=== PATIENT | female | born 1995 | race Caucasian/White ===

== ENCOUNTER 2017-08-14 09:30 | Inpatient (IN) | payer BC ==
[~2017-08-14 09:30] MED LIST: DEXTROSE 5%-LACTATED RINGERS 1,000 ML IV SCH
[2017-08-14] MEDS ORDERED: AMPICILLIN - 2 GM in SODIUM CHLORIDE 100 ML IVPB ONE (09:40)
[2017-08-14] MEDS ORDERED: BUTORPHANOL TARTRATE 1 MG/ML VIAL IVPB ONE (09:50)
[2017-08-14] MEDS ORDERED: BUTORPHANOL TARTRATE 1 MG/ML VIAL IVPB SCH (09:50)
[2017-08-14] MEDS ORDERED: PROMETHAZINE HCL 25 MG/1 ML VIAL IVPB ONE (09:50)
[2017-08-14] MEDS ORDERED: TUBERCULIN PPD 5 TU/0.1ML SYRINGE (IN PATIENT USE ONLY) ID ONE (10:14)
[2017-08-14 10:35] VITALS: BMI 27.9
[2017-08-14 11:12] LABS: BASOPHIL 0.4 % (0-2.0); EOSINOPHIL 0.1 % (0-4.5); MCHC 31.5 g/dl (32.0-36.0); MEAN CELL VOLUME 69.8 fl (80-96); MEAN PLT VOLUME 9.3 fl (7.5-11.1); NEUTROPHILS 89.7 % (42.8-82.8); PLATELET COUNT 204 K/MM3 (134-434); RDW 14.6 % (11.6-15.6); WHITE BLOOD COUNT 16.7 K/mm3 (4.0-10.0)
[2017-08-14 11:28] LABS: INR 0.94 (0.82-1.09); PROTHROMBIN TIME (PATIENT) 10.6 SEC (9.98-11.88)
[2017-08-14] MEDS ORDERED: ELECTROLYTE-148 SOLN 1,000 ML IV ONE (11:30)
[2017-08-14 11:31] LABS: ACTIVATED PTT 27.9 SECONDS (26.9-34.4)
[2017-08-14 13:08] LABS: HIV 1 & 2 AB NEGATIVE; HIV 1 AGp24 NEGATIVE
[2017-08-14] MEDS: AMPICILLIN - 1 GM in SODIUM CHLORIDE 100 ML IVPB SCH (13:40)
[2017-08-14] MEDS ORDERED: OXYTOCIN 15 UNITS/ LR 250 ML 250 ML IV ONE (14:45)
--- NOTE | 2017-08-14 14:48 | HP ---
Past Medical History - Admission Chief Complaint: Labor pain History of Present Illness: 22 yo @ 38.6 weeks gestation, EDC , admitted for labor pain. History Source: Patient Limitations to Obtaining History: No Limitations - Past Medical History ...: 1 ...Para: 0 ...Term: 0 ...: 0 ...Spon : 0 ...Induced : 0 ...Multiple Gestation: 0 ...LMP: 11/15/15 ... Weeks Gestation by Dates: 38.6 ...EDC by Dates: 08/22/17 - Past Surgical History Past Surgical History: Yes: None Hx Myomectomy: No Hx Transabdominal Cerclage: No - Smoking History Smoking history: Never smoked Have you smoked in the past 12 months: No - Alcohol/Substance Use Hx Alcohol Use: No History of Substance Use: reports: None - Social History Usual Living Arrangement: Yes: With Parent History of Recent Travel: No Home Medications - Allergies Allergies/Adverse Reactions: Allergies Allergy/AdvReac Type Severity Reaction Status Date / Time No Known Allergies Allergy Verified 08/14/17 10:52 - Home Medications Home Medications: Ambulatory Orders Vit #108/Iron/FA [ One Tablet] 1 tab PO DAILY 08/14/17 Family Disease History - Family Disease History Family History: Unremarkable Review of Systems - Review of Systems Constitutional: reports: No Symptoms Eyes: reports: No Symptoms HENT: reports: No Symptoms Neck: reports: No Symptoms Cardiovascular: reports: No Symptoms Respiratory: reports: No Symptoms Gastrointestinal: reports: No Symptoms Genitourinary: reports: Pain Breasts: reports: No Symptoms Reported Musculoskeletal: reports: No Symptoms Integumentary: reports: No Symptoms Neurological: reports: No Symptoms Endocrine: reports: No Symptoms Hematology/Lymphatic: reports: No Symptoms Psychiatric: reports: No Symptoms Pain Intensity: 8 Physical Exam - Maternity Vital Signs: Vital Signs Temperature 98.6 F 08/14/17 14:00 Pulse Rate 82 08/14/17 14:15 Respiratory Rate 20 08/14/17 14:15 Blood Pressure 126/65 08/14/17 14:15 O2 Sat by Pulse Oximetry (%) 100 08/14/17 12:30 Constitutional: Yes: Well Nourished Eyes: Yes: Conjunctiva Clear HENT: Yes: Atraumatic Neck: Yes: Supple Cardiovascular: Yes: Regular Rate and Rhythm Lungs: Clear to auscultation - Abdominal Exam/OB Number of Fetuses: Single Presentation: Vertex - Vaginal Exam/OB Station: -2 - Physical Exam Psychiatric: Yes: Alert, Oriented - Labs Lab Results: CBC, BMP 08/14/17 10:40 Problem List - Problems (1) Pain during labor Code(s): O99.89 - OTH DISEASES AND CONDITIONS COMPL PREG/CHLDBRTH R52 - PAIN, UNSPECIFIED Assessment/Plan Active labor Admit to L&D Analgesia as needed Anticipate
[2017-08-14] MEDS ORDERED: OXYTOCIN 15 UNITS/ LR 250 ML 250 ML IVPB SCH (15:00)
[2017-08-14] MEDS ORDERED: FENTANYL/BUPIVACAINE/NS/PF - PCEA - 50 ML DISP.SYRIN EP SCH (15:30)
[2017-08-14] MEDS ORDERED: morphine SULFATE/Preservative Free 0.5 MG/ML (1cc Syringe) EP ONE (16:07)
[2017-08-14] MEDS ORDERED: ONDANSETRON 4 MG/2 ML VIAL IVPUSH PRN (16:07)
[2017-08-14] MEDS ORDERED: IBUPROFEN 800 MG/8 ML IJ IVPB PRN (16:08)
[2017-08-14] MEDS ORDERED: MEPERIDINE HCL CARPU-JECT 50 MG/1 ML DISP.SYRIN IVPUSH ONE (16:41)
[2017-08-14] MEDS ORDERED: OXYTOCIN 15 UNITS/ LR 250 ML 250 ML IVPB ONE (18:21)
[2017-08-14] MEDS ORDERED: OXYTOCIN 20 UNITS in 0.9% NS 1000 ML INFUS.BAG IV ONE (18:40)
[2017-08-14 19:04] LABS: ARTERIAL BLD GAS O2 SATURATION 84.4 % (90-98.9); ARTERIAL BLOOD GAS BASE EXCESS -4.7 meq/l (-2-2); ARTERIAL BLOOD GAS HCO3 21.6 meq/L (22-26); ARTERIAL BLOOD GAS pH 7.29 (7.35-7.45)
[2017-08-14 19:10] LABS: VENOUS BLOOD GAS HCO3 22.2 meq/L (19-25); VENOUS PH 7.29 (7.32-7.42)
[2017-08-14] MEDS ORDERED: METHYLERGONOVINE MALEATE 0.2 MG/1 ML AMP IM PRN (19:12)
[2017-08-14] MEDS ORDERED: oxyCODONE HCL 5 MG TABLET PO PRN (19:12)
[2017-08-14 19:14] LABS: ARTERIAL BLOOD GAS PO2 42.3 mmHg (80-100)
--- NOTE | 2017-08-14 19:17 | OP ---
Operative Note - Note: Operative Date: 08/14/17 Pre-Operative Diagnosis: Non reassuring Heart Rate Operation: Primary Low Transverse Findings: Baby in Occiput posterior position Post-Operative Diagnosis: Same as Pre-op Surgeon: Brianna May Lot Associate: Xavi Kim Anesthesia: Epidural Specimens Removed: Placenta Estimated Blood Loss (mls): 600
[2017-08-14] MEDS ORDERED: OXYTOCIN 20 UNITS in 0.9% NS 1,000 ML IV SCH (19:30)
--- NOTE | 2017-08-14 19:32 | PN ---
Progress Note (short form) - Note Progress Note: 22 yo , @ 39 weeks gestation, admitted for labor pain. She's status post epidural anesthesia. She's lying comfortably in bed. FHR : Non-reassuring, several episodes of Bradycardia Jovista : + irregular contractions VE : 9 / 100/ 0 AROM A / P Active labor Non- Reassuring Heart Rate Bradycardia Stat Prep and shave Consent signed Anesthesia to see patient Problem List - Problems (1) Pain during labor Code(s): O99.89 - OTH DISEASES AND CONDITIONS COMPL PREG/CHLDBRTH R52 - PAIN, UNSPECIFIED
[2017-08-14] MEDS: OXYTOCIN 20 UNITS in 0.9% NS 1,000 ML IV SCH (22:02)
[2017-08-15] MEDS: OXYTOCIN 20 UNITS in 0.9% NS 1,000 ML IV SCH (02:00)
--- NOTE | 2017-08-15 06:55 | PN ---
Post Progress Note Post Day: 1 Type of Delivery: Primary C/S Vital Signs: Vital Signs Temperature 98.3 F 08/15/17 05:58 Pulse Rate 92 H 08/15/17 05:58 Respiratory Rate 18 08/15/17 05:58 Blood Pressure 100/57 08/15/17 05:58 O2 Sat by Pulse Oximetry (%) 100 08/14/17 17:30 Breast Exam: Yes: Soft Uterus: Yes: Fundus Firm Incision: Yes: Dressing dry and intact Abdomen/GI: Yes: Abdomen soft Lochia: Yes: Rubra Lochia, amount: Small Extremities: Yes: Calves non-tender Perineum: Yes: Intact Activity: Ambulating - Labs Labs: CBC WBC 16.7 K/mm3 (4.0-10.0) H 08/14/17 10:40 RBC 4.98 M/mm3 (3.60-5.2) 08/14/17 10:40 Hgb 10.9 GM/dL (10.7-15.3) 08/14/17 10:40 Hct 34.7 % (32.4-45.2) 08/14/17 10:40 MCV 69.8 fl (80-96) L 08/14/17 10:40 MCH 22.0 pg (25.7-33.7) L 08/14/17 10:40 MCHC 31.5 g/dl (32.0-36.0) L 08/14/17 10:40 RDW 14.6 % (11.6-15.6) 08/14/17 10:40 Plt Count 204 K/MM3 (134-434) 08/14/17 10:40 MPV 9.3 fl (7.5-11.1) 08/14/17 10:40 Neutrophils % 89.7 % (42.8-82.8) H 08/14/17 10:40 Lymphocytes % 5.6 % (8-40) L 08/14/17 10:40 Monocytes % 4.2 % (3.8-10.2) 08/14/17 10:40 Eosinophils % 0.1 % (0-4.5) 08/14/17 10:40 Basophils % 0.4 % (0-2.0) 08/14/17 10:40 Assessment/Plan check labs oob reg diet pain meds
[2017-08-15] MEDS: AMPICILLIN - 1 GM in SODIUM CHLORIDE 100 ML IVPB SCH (07:15)
[2017-08-15 08:22] LABS: BASOPHIL 0.1 % (0-2.0); EOSINOPHIL 0.1 % (0-4.5); MCH 22.1 pg (25.7-33.7); MCHC 31.7 g/dl (32.0-36.0); MEAN CELL VOLUME 69.6 fl (80-96); NEUTROPHILS 87.4 % (42.8-82.8); PLATELET COUNT 173 K/MM3 (134-434); RDW 14.5 % (11.6-15.6); WHITE BLOOD COUNT 18.1 K/mm3 (4.0-10.0)
--- NOTE | 2017-08-15 08:46 | PN ---
Progress Note (short form) - Note Progress Note: Post op day#1.S/P C Section under spinal anesthesia with duramorph uneventful.Patient stable and does not c/o pain.No any anesthesia related problem.Patient DC from the anesthesia care.
[2017-08-15] MEDS ORDERED: DIPHTH,PERTUSS(ACELL),TET 0.5 ML DISP.SYRIN IM ONE (10:00)
[2017-08-15 10:31] LABS: URINE APPEARANCE CLEAR; URINE BILIRUBIN NEGATIVE (NEGATIVE); URINE BLOOD 1+ (NEGATIVE); URINE COLOR LTYELLOW; URINE GLUCOSE (UA) NEGATIVE (NEGATIVE); URINE KETONE 1+ (NEGATIVE); URINE NITRITE NEGATIVE (NEGATIVE); URINE PROTEIN NEGATIVE (NEGATIVE); URINE UROBILINOGEN NEGATIVE mg/dL (0.2-1.0)
[2017-08-15 11:17] LABS: URINE MUCUS RARE; URINE WBC 0-2 /hpf (3-5)
[2017-08-15 12:54] LABS: HYPOCHROMIA 1+; MICROCYTOSIS 2+; OVALOCYTE 1+
[2017-08-15] MEDS: SIMETHICONE 80 MG TAB.CHEW (FP) PO PRN ×2 (15:06→21:43)
[2017-08-15] MEDS: IBUPROFEN 600 MG TABLET (FP) PO PRN ×2 (15:06→21:43)
[2017-08-15] MEDS: ACETAMINOPHEN 325 MG TABLET (FP) PO PRN ×2 (15:07→21:43)
[2017-08-15] MEDS ORDERED: BISACODYL 10 MG SUPP.RECT RC PRN (19:13)
[2017-08-15 22:34] LABS: URINE LEUK ESTERASE Negative (NEGATIVE)
[2017-08-16] MEDS: ACETAMINOPHEN 325 MG TABLET (FP) PO PRN ×2 (08:47→17:22)
[2017-08-16] MEDS: SIMETHICONE 80 MG TAB.CHEW (FP) PO PRN ×2 (08:47→17:22)
[2017-08-16] MEDS: IBUPROFEN 600 MG TABLET (FP) PO PRN ×2 (08:48→17:23)
--- NOTE | 2017-08-16 09:14 | PN ---
Post Progress Note Post Day: 2 Type of Delivery: Primary C/S Vital Signs: Vital Signs Temperature 97.8 F 08/15/17 22:00 Pulse Rate 87 08/15/17 22:00 Respiratory Rate 18 08/15/17 22:00 Blood Pressure 103/65 08/15/17 22:00 O2 Sat by Pulse Oximetry (%) 100 08/14/17 17:30 Uterus: Yes: Fundus Firm Incision: Yes: Dressing dry and intact Abdomen/GI: Yes: Abdomen soft Lochia: Yes: Rubra Lochia, amount: Small Extremities: Yes: Calves non-tender Perineum: Yes: Intact Activity: Ambulating - Labs Labs: CBC WBC 18.1 K/mm3 (4.0-10.0) H 08/15/17 07:30 RBC 4.17 M/mm3 (3.60-5.2) 08/15/17 07:30 Hgb 9.2 GM/dL (10.7-15.3) L D 08/15/17 07:30 Hct 29.0 % (32.4-45.2) L D 08/15/17 07:30 MCV 69.6 fl (80-96) L 08/15/17 07:30 MCH 22.1 pg (25.7-33.7) L 08/15/17 07:30 MCHC 31.7 g/dl (32.0-36.0) L 08/15/17 07:30 RDW 14.5 % (11.6-15.6) 08/15/17 07:30 Plt Count 173 K/MM3 (134-434) 08/15/17 07:30 MPV 9.0 fl (7.5-11.1) 08/15/17 07:30 Neutrophils % 87.4 % (42.8-82.8) H 08/15/17 07:30 Lymphocytes % 5.8 % (8-40) L 08/15/17 07:30 Monocytes % 6.6 % (3.8-10.2) 08/15/17 07:30 Eosinophils % 0.1 % (0-4.5) 08/15/17 07:30 Basophils % 0.1 % (0-2.0) 08/15/17 07:30 Hypochromia 1+ 08/15/17 07:30 Microcytosis 2+ 08/15/17 07:30 Ovalocytes 1+ 08/15/17 07:30 Assessment/Plan oob reg diet pain control
[2017-08-17] MEDS: IBUPROFEN 600 MG TABLET (FP) PO PRN ×2 (02:03→08:40)
[2017-08-17] MEDS: SIMETHICONE 80 MG TAB.CHEW (FP) PO PRN ×2 (02:03→08:40)
[2017-08-17] MEDS: ACETAMINOPHEN 325 MG TABLET (FP) PO PRN ×2 (02:04→08:41)
[2017-08-17 08:41] LABS: BASOPHIL 0.4 % (0-2.0); MCH 22.4 pg (25.7-33.7); MEAN CELL VOLUME 70.2 fl (80-96); MEAN PLT VOLUME 8.7 fl (7.5-11.1); NEUTROPHILS 79.4 % (42.8-82.8); PLATELET COUNT 211 K/MM3 (134-434); RDW 14.6 % (11.6-15.6); WHITE BLOOD COUNT 12.4 K/mm3 (4.0-10.0)
[2017-08-17 09:08] VITALS: BP 112/62; PULSE 94; TEMP 98.4
--- NOTE | 2017-08-17 10:09 | DS ---
Physical Exam-CONFIGURATION MANAGER Vital Signs: Vital Signs Temperature 98.4 F 08/17/17 09:05 Pulse Rate 94 H 08/17/17 09:05 Respiratory Rate 18 08/17/17 09:05 Blood Pressure 112/62 08/17/17 09:05 O2 Sat by Pulse Oximetry (%) 100 08/14/17 17:30 Constitutional: Yes: Well Nourished Eyes: Yes: Conjunctiva Clear HENT: Yes: Atraumatic Neck: Yes: Supple Cardiovascular: Yes: Regular Rate and Rhythm Respiratory: Yes: Regular Gastrointestinal: Yes: Normal Bowel Sounds External Genitalia: Yes: Normal Vaginal Exam: Yes: Normal Uterus: Yes: Firm Wound/Incision: Yes: Well Approximated, Steri Strips (in place) Neurological: Yes: Alert, Oriented ...Motor Strength: WNL Psychiatric: Yes: Alert, Oriented Labs: CBC, BMP 08/17/17 08:36 Delivery - Delivery Type of Anesthesia: Epidural Episiotomy/Laceration: None EBL (cc): 600 Delivery, Single - Stages of Labor Date 1st Stage Initiatied: 08/14/17 Time 1st Stage Initiated: 03:00 Date 2nd Stage Initiated: 08/14/17 Time 2nd Stage Initiated: 15:00 Date of Delivery: 08/14/17 Time of Delivery: 15:51 Time Placenta Delivered: 15:52 - Condition of Drug Safety Physician/Bricklayer'S Assistant Present: Yes Name: Isabella Goddard Gender: Male Weight: 7 lb 11 oz Position: OP Total Hours ROM (Hrs/Mins): 2 hrs - 1 Minute Total Score: 9 5 Minutes Total Score: 9 - Feeding Plan Initial Plan: Exclusive throughout hospitalization Discharge Summary Reason For Visit: LABOR Current Active Problems Pain during labor (Acute) Status post primary low transverse section (Acute) Procedures: Principal: Primary Low Transverse Hospital Course: Routine post op care Condition: Good - Instructions Diet, Activity, Other Instructions: Regular diet No driving, no lifting x 4 weeks F/U with MD in 2 weeks Disposition: HOME - Home Medications Comprehensive Discharge Medication List: Ambulatory Orders Vit #108/Iron/FA [ One Tablet] 1 tab PO DAILY 08/14/17
--- NOTE | 2017-08-18 12:17 | PATH ---
Surgical Pathology Report Patient Name: RUDOLPH PARNELL [facility]. Rec. #: [id number] /Age/Gender: 1995 (Age: 22) / F Account: [id number] Location: [facility] OBS/DETASSELER Taken: 08/14/2017 Received: 08/15/2017 Reported: 08/18/2017 Physicians: Brianna May M.D. Specimen(s) Received PLACENTA Clinical History 38.6 weeks' gestation, variable decels Final Diagnosis PLACENTA, DELIVERY: FOCALLY DISRUPTED THIRD TRIMESTER PLACENTA WITH THREE VESSEL UMBILICAL CORD AND UNREMARKABLE PLACENTAL MEMBRANES. Electronically Signed Johnny Rogel M.D. Gross Description The specimen is received fresh labeled placenta and is a 426 gram, 16.5 x 13.5 x 2.4 cm. placenta with attached membranes and umbilical cord. The attached membranes are cantu, translucent with focal opacities and insert marginally. The umbilical cord measures 16 cm. in length and averages 1.1 cm. in diameter. The cord inserts eccentrically, 2 cm. to the nearest margin. No true knots or strictures are identified. Cut surface of the umbilical cord reveals 3 vessels. The surface is paul-blue with minimal fibrin deposition and appropriate caliber vessels. The maternal surface is red-brown with focal defects. Sectioning reveals red-brown, spongy parenchyma. No lesions are identified. Vascular Sonographer sections are submitted in three cassettes as follows: 1- membrane rolls and umbilical cord; 2-3- full thickness sections of placenta. 08/17/2017 [facility]08/17/2017
== END 2017-08-17 12:10 | disposition home or self-care (01) | DRG 766 ==
LOC: JLDR 09:30 → J3W 19:15
PROVIDERS: ADMIT Obstetrics & Gynecology; ATTEND Obstetrics & Gynecology
PROC: 10D00Z1 Extraction of Products of Conception, Low, Open Approach (ICD-10-PCS; principal; 2017-08-14)
DX: O76 Abnormality in fetal heart rate and rhythm complicating labor and delivery (principal); Z3A.39 39 weeks gestation of pregnancy; Z37.0 Single live birth
CPT/HCPCS: 36415; 36600; 81003; 81015; 82803; 85025; 85610; 85730; 86593; 86762; 86850; 86900; 86901; 87340; 87389; 88307-TC; 90715